=== PATIENT | male | born 1980 | race Caucasian/White ===

== ENCOUNTER 2017-03-21 15:11 | Emergency (ER) | payer SELFPAY ==
[~2017-03-21] VITALS: Ht 193 cm; Wt 127.0 kg
[2017-03-21 15:23] VITALS: BP 155/92; PULSE 101; RESP 16; TEMP 98; O2SAT 99
[2017-03-21 15:28] VITALS: BP 155/92; PULSE 101; RESP 18; TEMP 98; O2SAT 99
[2017-03-21] MEDS ORDERED: AMOX875T PO (15:34)
[2017-03-21] MEDS ORDERED: SODIUM CHLORIDE 0.9% FLUSH 10 ML FLUSH IVF PRN (16:00)
--- NOTE | 2017-03-21 16:07 | PD ---
HPI Chief Complaint: ENT Complaint Time Seen by Provider: 15:45 Travel History International Travel<30 days: No Contact w/Intl Traveler<30days: No Traveled to known affect area: No History of Present Illness HPI 37-year-old male presents to the emergency room for evaluation of sore throat and throat swelling that started this morning. Patient states he was diagnosed with strep throat 1 week ago and finished his course of penicillin. States he was doing well until this morning. States he could feel the swelling developing throughout the day and when he looked in the mirror he saw his throat was pushed to one side. States it makes it difficult for him to speak because it feels as though his tongue is unaffected by the throat. Pain is severe and worse with coughing and swallowing. He has not taken anything or done anything for his symptoms. Denies associated upper respiratory symptoms. Denies fever, chills, nausea, and vomiting. No chronic medical conditions or daily medications. PFSH Past Medical History Anxiety: Yes Depression: Yes Diminished Hearing: No Tetanus Vaccination: < 5 Years Influenza Vaccination: No Past Surgical History Surgical History: No Previous Surgery Social History Alcohol Use: No Tobacco Use: Yes (1 ppd) Substance Use: Yes (pot) Allergies-Medications (Allergen,Severity, Reaction): Coded Allergies: No Known Allergies (Unverified , 03/21/17) Reported Meds & Prescriptions Reported Meds & Active Scripts Active Reported Amoxicillin 875 Mg Tab 875 Mg PO BID Review of Systems Except as stated in HPI: all other systems reviewed are Neg Physical Exam Narrative GENERAL: Well-nourished, well-developed male in no acute distress. Afebrile. Ambulatory. SKIN: Focused skin assessment warm/dry. HEAD: Normocephalic. EYES: No scleral icterus. No injection or drainage. NECK: Supple, trachea midline. No JVD or lymphadenopathy. ENT: Mucosa pink and moist. Moderate to severe erythema without exudates. No uvular edema. No uvular deviation. There is some right palatal and tonsillar deviation to the left. Uvula is not midline. Airway patent. EARS: Bilateral pinnae and external canals appear within normal limits. Bilateral tympanic membranes without erythema, dullness or perforation. CARDIOVASCULAR: Regular rate and rhythm without murmurs, gallops, or rubs. RESPIRATORY: Breath sounds equal bilaterally. No accessory muscle use. Data Data Last Documented VS Vital Signs Date Time Temp Pulse Resp B/P Pulse Ox O2 Delivery O2 Flow Rate FiO2 03/21/17 15:28 98.0 101 18 155/92 99 03/21/17 15:23 Room Air Orders Basic Metabolic Panel (Bmp) (03/21/17 15:56) Complete Blood Count With Diff (03/21/17 15:56) Group A Rapid Strep Screen (03/21/17 15:56) Iv Access Insert/Monitor (03/21/17 15:56) Sodium Chloride 0.9% Flush (Ns Flush) (03/21/17 16:00) Ct Soft Tiss Neck W Iv Cont (03/21/17 15:59) Strep Culture (Group A) (03/21/17 16:15) Iohexol 350 Inj (Omnipaque 350 Inj) (03/21/17 16:37) Ampicillin-Sulbactam Inj (Unasyn Inj) (03/21/17 16:45) Dexamethasone Inj (Decadron Inj) (03/21/17 17:30) Sodium Chlor 0.9% 1000 Ml Inj (Ns 1000 M (03/21/17 17:30) Labs Laboratory Tests Test 03/21/17 03/21/17 14:45 16:15 Sodium Level 138 MEQ/L Potassium Level 4.3 MEQ/L Chloride Level 106 MEQ/L Carbon Dioxide Level 27.0 MEQ/L Anion Gap 5 MEQ/L Blood Urea Nitrogen 9 MG/DL Creatinine 0.91 MG/DL Estimat Glomerular Filtration 94 ML/MIN Rate Random Glucose 86 MG/DL Calcium Level 8.6 MG/DL White Blood Count 11.3 TH/MM3 Red Blood Count 6.19 MIL/MM3 Hemoglobin 17.0 GM/DL Hematocrit 52.3 % Mean Corpuscular Volume 84.6 FL Mean Corpuscular Hemoglobin 27.5 PG Mean Corpuscular Hemoglobin 32.5 % Concent Red Cell Distribution Width 13.9 % Platelet Count 208 TH/MM3 Mean Platelet Volume 9.1 FL Neutrophils (%) (Auto) 68.3 % Lymphocytes (%) (Auto) 21.3 % Monocytes (%) (Auto) 6.9 % Eosinophils (%) (Auto) 2.1 % Basophils (%) (Auto) 1.4 % Neutrophils # (Auto) 7.7 TH/MM3 Lymphocytes # (Auto) 2.4 TH/MM3 Monocytes # (Auto) 0.8 TH/MM3 Eosinophils # (Auto) 0.2 TH/MM3 Basophils # (Auto) 0.2 TH/MM3 CBC Comment DIFF FINAL Differential Comment MDM Medical Decision Making Medical Screen Exam Complete: Yes Emergency Medical Condition: Yes Medical Record Reviewed: Yes Differential Diagnosis Peritonsillar abscess, streptococcal pharyngitis, viral pharyngitis Narrative Course 37-year-old male presents to the emergency room for evaluation of sore throat and throat swelling that started earlier today. Patient had history of streptococcal pharyngitis one week ago for which he finished his course of amoxicillin. States he felt better until this morning. Throughout the day he has had worsening swelling of the throat. Denies fever, chills, nausea, vomiting. Physical exam reveals beefy red pharynx with primary palatal and tonsillar deviation to the left. Uvula is not midline. IV access established and basic labs drawn. CBC and BMP are essentially unremarkable. CT shows focal soft tissue abnormality in the right parapharyngeal region with midline shift to the left most consistent with parapharyngeal abscess. I spoke to the ENT on-call, Dr. Menendez, who recommends admission and IV Decadron and Unasyn. Patient is resistant to admission stating he has no one to watch his 15-year- old son who is autistic. He will be leaving AGAINST MEDICAL ADVICE. He will be discharged with prescriptions for prednisone and Augmentin and told to follow up Dr. Menendez on Sunday. He understands and agrees to plan. AMA: The risks of leaving against medical advice without further evaluation treatment were discussed with the patient. These risks include sepsis, airway closure, cardiac dysfunction, cardiac dysrhythmia, possible heart attack, possible stroke or . The patient indicated understanding of these risks and appeared to have the capacity to make this decision. Diagnosis Primary Impression: Left against medical advice Additional Impression: Peripharyngeal abscess Referrals: Guillermo Menendez MD Patient Instructions: General Instructions, Peritonsillar Abscess (ED) Additional Instructions: Rest and drink plenty of fluids. Take prednisone as directed, until gone. Take Augmentin as directed, until gone. Follow up with Dr. Menendez. Call his office for an appointment on Sunday. Return to emergency room for worsening symptoms, as discussed. Med/Other Pt SpecificInfo: Prescription(s) given Scripts Prednisone (21) 10 mg tab Dose Pack 10 Mg Pack10 Mg PO DIRECTED #1 DSPK Ref 0 Prov:Paul Salinas MD 03/21/17 Amoxicillin-Clavulanate (Augmentin)875-125 Mg Tab1 Tab PO BID 10 Days Ref 0 Prov:Paul Salinas MD 03/21/17 Disposition: 07 AGAINST MEDICAL ADVICE Condition: Stable Selena Rico Mar 21, 2017 16:07
[2017-03-21 16:22] LABS: AUTOMATED NEUTROPHIL # 7.7 TH/MM3 (1.8-7.7); BASOPHIL # 0.2 TH/MM3 (0-0.2); BASOPHIL % 1.4 % (0.0-2.0); EOSINOPHIL # 0.2 TH/MM3 (0-0.4); EOSINOPHIL % 2.1 % (0.0-4.0); HEMATOCRIT 52.3 % (39.0-51.0); LYMPH % 21.3 % (9.0-44.0); LYMPHOCYTE # 2.4 TH/MM3 (1.0-4.8); MEAN CELL VOLUME 84.6 FL (80.0-100.0); MEAN CORPUSCULAR HEMOGLOBIN 27.5 PG (27.0-34.0); MEAN CORPUSCULAR HGB CONC 32.5 % (32.0-36.0); MONO % 6.9 % (0.0-8.0); NEUT % 68.3 % (16.0-70.0); PLATELET COUNT 208 TH/MM3 (150-450); RED BLOOD COUNT 6.19 MIL/MM3 (4.50-5.90); RED CELL DISTRIBUTION WIDTH 13.9 % (11.6-17.2); WHITE BLOOD COUNT 11.3 TH/MM3 (4.0-11.0)
[2017-03-21 16:23] LABS: HEMO FLAGS DIFF FINAL
[2017-03-21] MEDS ORDERED: IOHEXOL 350 MG/ML 10 ML VIAL (for RAD DIAG) IV ONE (16:37)
[2017-03-21] MEDS ORDERED: AMPICILLIN-SULBACTAM INJ 3 GM in SODIUM CHLORIDE 0.9% INJ 100 ML IV ONE (16:45)
--- NOTE | 2017-03-21 16:52 | RADRPT ---
EXAM DATE/TIME: 03/21/2017 16:26 [facility] COMPARISON: No previous studies available for comparison. INDICATIONS : Sore throat with lump in throat. IV CONTRAST: 75 cc Omnipaque 350 (iohexol) IV RADIATION DOSE: 15.56 CTDIvol (mGy) MEDICAL HISTORY : None SURGICAL HISTORY : None. ENCOUNTER: Initial ACUITY: 1 day PAIN SCALE: 8/10 LOCATION: throat TECHNIQUE: Volumetric scanning of the neck was performed. Using automated exposure control and adjustment of th e mA and/or kV according to patient size, radiation dose was kept as low as reasonably achievable to obtain optimal diagnostic quality images. DICOM format image data is available electronically for r eview and comparison. FINDINGS: NASOPHARYNX: The nasopharyngeal airway has a normal configuration. No mucosal thickening or mass is seen. OROPHARYNX: The intrinsic muscles of the tongue are symmetric. There is an abnormal masslike area of soft tissue with subtle enhancement in the right parapharyngeal region. This measures up to approximately 2.8 x 2 .4 cm in greatest diameter. There is an area of low attenuation within this area which is poorly defi sherine secondary to streak artifact but measures approximately 11-12 mm in size. There is midline shift of the airway at approximately the 8-9 mm. There are no abnormal calcifications. The prevertebral sof t tissues are not thickened. LARYNX: The supraglottic, glottic, and infraglottic structures are intact. PARAPHARYNGEAL: The parapharyngeal space is intact. SALIVARY GLANDS: The parotid and submandibular glands are intact. LYMPH NODES: No enlarged or necrotic-appearing nodes. There are multiple small reactive appearing right cervical c sage nodes with no definite adenopathy. THYROID: Homogeneous enhancement without evidence of nodule. BONES: Unremarkable. CONCLUSION: 1. Focal soft tissue abnormality in the right parapharyngeal region with area of decreased attenuatio n. There is mild midline shift to the left. In the appropriate clinical setting this is most consiste nt with parapharyngeal abscess. A tumor could have this appearance. 2. Small reactive appearing right cervical chain nodes with no definite adenopathy. Guillremo Leonard MD on March 21, 2017 at 16:40 Board Certified Radiologist. This report was verified electronically.
[2017-03-21 16:59] LABS: POTASSIUM 4.3 MEQ/L (3.5-5.1)
[2017-03-21] MEDS ORDERED: DEXAMETHASONE SOD PHOS 4 MG/ML VIAL IV ONE (17:30)
[2017-03-21] MEDS ORDERED: SODIUM CHLOR 0.9% 1000 ML INJ 1,000 ML IV ONE (17:30)
[2017-03-21] MEDS ORDERED: AUGM875T3 PO (18:22)
[2017-03-21] MEDS ORDERED: PRED10PA PO (18:22)
== END 2017-03-21 19:12 | disposition left against medical advice (07) ==
LOC: PHEFT 15:11
DX: J39.0 Retropharyngeal and parapharyngeal abscess (principal); F17.200 Nicotine dependence, unspecified, uncomplicated; Z86.59 Personal history of other mental and behavioral disorders; Z53.29 Procedure and treatment not carried out because of patient's decision for other reasons
CPT/HCPCS: 70491; 80048; 85025; 87081; 87880; 96365; 99285; J0295; J1100; Q9967